=== PATIENT | female | born 1940 | race Caucasian/White ===

== ENCOUNTER 2018-04-02 22:52 | Emergency (ER) | payer MEDICARE ==
[2018-04-02 22:58] VITALS: BP 182/90; PULSE 107; RESP 18; TEMP 98.6
[2018-04-02] MEDS ORDERED: LORazepam 1 MG TAB PO STA (23:28)
--- NOTE | 2018-04-02 23:39 | ED ---
General Adult HPI - General Chief complaint: Skin/Abscess/Foreign Body Stated complaint: allergic reaction Time Seen by Provider: 04/02/18 23:03 Source: patient, RN notes reviewed Mode of arrival: ambulatory Limitations: no limitations - History of Present Illness Initial comments: This is a 77-year-old female who presents to the emergency department with chief complaint of rash. Patient states that 2 weeks ago she was diagnosed with poison junaid. She states that she had been cleaning up under tree branches and had a rash on her face and neck. She states that since that time the rash has spread to her arms and legs. She states that she has been on a course of prednisone but stopped taking it. She has also been applying topical steroids. Patient states that for the past 2 weeks she has been taking Benadryl every 6 hours. She states that last night she took her last dose of Benadryl at 11 PM. She states she has not taken any today. Patient presents to the emergency department complaining of feeling jittery and anxious. She states that she has never experienced anxiety before. She denies any recent fevers or chills, chest pain or shortness of breath, abdominal pain, nausea or vomiting, dizziness or headache. - Related Data Allergies Allergy/AdvReac Type Severity Reaction Status Date / Time latex Allergy Rash/Hives Verified 04/02/18 22:59 Sulfa (Sulfonamide Allergy Unknown Verified 04/02/18 22:59 Antibiotics) Review of Systems ROS Statement: Those systems with pertinent positive or pertinent negative responses have been documented in the HPI. ROS Other: All systems not noted in ROS Statement are negative. Past Medical History Past Medical History: Hyperlipidemia, Hypertension History of Any Multi-Drug Resistant Organisms: None Reported Past Surgical History: Bladder Surgery Additional Past Surgical History / Comment(s): bladder suspension , colon surgery Past Psychological History: No Psychological Hx Reported Smoking Status: Never smoker Past Alcohol Use History: None Reported Past Drug Use History: None Reported General Exam - General Exam Comments Initial Comments: General: Awake and alert, well-developed; in no apparent distress. Friend is at bedside. HEENT: Head atraumatic, normocephalic. Pupils are equal, round and reactive to light. Extraocular movements intact. Oropharynx without erythema or exudate. Neck: Supple. Normal ROM. Cardiovascular: Tachycardia. Regular rhythm. No murmurs, rubs or gallops. Chest symmetrical. Respiratory: Lungs clear to auscultation bilaterally. No wheezes, rales or rhonchi. Normal respiratory effort with no use of accessory muscles. Musculoskeletal: Normal ROM, no tenderness bilateral upper and lower extremities. Ambulating normally. Skin: Diffuse dry, erythematous macular lesions with overlying excoriations on bilateral arms, back and legs. Neurological: Alert and oriented x3. CN II-XII grossly intact. Speech is fluent and answers are appropriate. No focal neuro deficits. Psychiatric: Patient does appear anxious. Limitations: no limitations Course Vital Signs 04/02/18 22:53 Temperature 98.6 F Pulse Rate 107 H Respiratory 18 Rate Blood Pressure 182/90 O2 Sat by Pulse 96 Oximetry EKG Findings - EKG Comments: EKG Findings:: 23:50:55. Sinus tachycardia. Left bundle branch block. Ventricular rate 103 bpm, MI interval 182, QRS duration 132, QT/QTC 382/500 Medical Decision Making - Medical Decision Making This is a 77-year-old female who presents to the emergency department for evaluation of rash and allergic reaction. Patient is concerned because she has been taking Benadryl every 6 hours for the past 2 weeks for treatment of poison junaid. She states that she discontinued the use of the medication yesterday and is now feeling jittery and anxious. She denies any chest pain or shortness of breath. EKG was obtained which revealed sinus tachycardia, left bundle branch block and prolonged QT. No previous EKGs to compare to. Case discussed with attending physician, Dr. Dawn. Recommends full cardiac workup. Discussed EKG findings with patient and strongly advised cardiac workup. Patient refuses blood work and is anxious to go home. She states, " I know my body and I know this is just a reaction to the benadryl." Patient will sign out against medical advice. Disposition Clinical Impression: Rash, EKG abnormality Disposition: Left Against Medical Advice Condition: Fair Instructions: Acute Rash (ED) Additional Instructions: As discussed, it is recommended that you undergo cardiac workup for abnormal EKG findings. Please follow up with primary care provider within 1-2 days. Return to emergency department if symptoms should worsen or any concerns arise. Is patient prescribed a controlled substance at d/c from ED?: No Referrals: None,Stated [Primary Care Provider] - 1-2 days Time of Disposition: 00:11
== END 2018-04-03 00:19 | disposition left against medical advice (07) ==
LOC: EC 22:52
DX: I45.81 Long QT syndrome (principal); I44.7 Left bundle-branch block, unspecified; R21 Rash and other nonspecific skin eruption; F41.9 Anxiety disorder, unspecified; Z91.040 Latex allergy status; Z88.2 Allergy status to sulfonamides; Z53.29 Procedure and treatment not carried out because of patient's decision for other reasons
CPT/HCPCS: 93005; 99283